=== PATIENT | male | born 1955 | race Caucasian/White ===

== ENCOUNTER 2021-06-09 14:42 | Emergency (ER) | payer OTHER ==
[~2021-06-09] VITALS: Ht 162.6 cm; Wt 77.1 kg
[2021-06-09] MEDS ORDERED: AMOX-CLAV 875-1 EAC1 PO (17:16)
[2021-06-09] MEDS ORDERED: DOLOGEN 325-11 EACH PO (17:16)
[2021-06-09] MEDS ORDERED: INTESTINEX680 M1 PO (17:16)
== END 2021-06-09 17:26 | disposition home or self-care (01) ==
LOC: ER 14:42
DX: Z48.02 Encounter for removal of sutures (principal); L03.90 Cellulitis, unspecified

== ENCOUNTER 2023-08-07 02:44 | Emergency (ER) | payer OTHER ==
[~2023-08-07] VITALS: Ht 162.6 cm; Wt 77.1 kg
[~2023-08-07 02:44] MED LIST: AMOX-CLAV 875-1 EAC1 PO; DOLOGEN 325-11 EACH PO; INTESTINEX680 M1 PO
== END 2023-08-07 07:17 ==
LOC: ER → EDBD 05:18 → ER 05:18
DX: S63.104A Unspecified dislocation of right thumb, initial encounter (principal); S50.01XA Contusion of right elbow, initial encounter; Y93.55 Activity, bike riding; Y92.9 Unspecified place or not applicable; Y99.9 Unspecified external cause status; Z88.6 Allergy status to analgesic agent